=== PATIENT | male | born 1955 | race Caucasian/White ===

== ENCOUNTER → 2020-09-16 | Day surgery (SDC) | payer OTHER ==
[~2020-09-16] MED LIST: ALBUTEROL0.63 MG/3 NEB; FLOMAX0.4 MG PO; LIDOCAINE HCL 2% LOCAL INJ 5 ML SDV VIAL INJ ONE; NEXIUM40 MG PO; POVIDONE IODINE 0.05% 0.05 % ML PO ONE; PROPOFOL IV EMULSION 10 MG/ML 20 ML VIAL ONE
[2020-09-16 12:35] VITALS: BP 142/96
== END | disposition home or self-care (01) ==
LOC: OR 09:26 → EDSEX 12:00
PROVIDERS: ATTEND Internal Medicine Gastroenterology
DX: K22.2 Esophageal obstruction (principal); K29.00 Acute gastritis without bleeding; K22.10 Ulcer of esophagus without bleeding; R63.4 Abnormal weight loss; K44.9 Diaphragmatic hernia without obstruction or gangrene; J45.909 Unspecified asthma, uncomplicated; Z01.810 Encounter for preprocedural cardiovascular examination; Z01.812 Encounter for preprocedural laboratory examination; Z68.1 Body mass index [BMI] 19.9 or less, adult; Z87.820 Personal history of traumatic brain injury; Z87.891 Personal history of nicotine dependence
CPT/HCPCS: 43249; 93005; J2001; J2704; U0002; 43239

== ENCOUNTER → 2020-10-07 | Outpatient (CLI) | payer OTHER ==
[~2020-10-07] MED LIST changes: -LIDOCAINE HCL 2% LOCAL INJ 5 ML SDV VIAL INJ ONE; -POVIDONE IODINE 0.05% 0.05 % ML PO ONE; -PROPOFOL IV EMULSION 10 MG/ML 20 ML VIAL ONE; +SUCRALFATE1 G/10 ML PO
== END | disposition home or self-care (01) ==
LOC: OR 10:08 → DX 10:08 → EDSTATUS 12:00
PROVIDERS: ATTEND Internal Medicine Gastroenterology
DX: Z01.812 Encounter for preprocedural laboratory examination (principal); Z20.822 Contact with and (suspected) exposure to COVID-19; R13.19 Other dysphagia; R12 Heartburn; R11.2 Nausea with vomiting, unspecified; R63.4 Abnormal weight loss; K29.00 Acute gastritis without bleeding; K22.2 Esophageal obstruction; Z68.1 Body mass index [BMI] 19.9 or less, adult
CPT/HCPCS: U0002